=== PATIENT | male | born 1970 | race Caucasian/White ===

== ENCOUNTER 2021-02-14 08:43 | Emergency (ER) | payer OTHER ==
[~2021-02-14] VITALS: Ht 175.3 cm; Wt 88.0 kg
--- NOTE | 2021-02-14 09:00 | NUR ---
The patient is BIBA RA39 In custody Escorted by Officer [place] [id number] Was picked up in jail house for arrest warrant possible ETOH. The patient is responsive to tactile stimuli. In room air, respiration regular and unlabored. The patient is attached to the monitor. Warm blanket provided for comfort. Will continue to monitor the patient.
--- NOTE | 2021-02-14 09:02 | NUR ---
The patient is placed on oxygen 4L/min via nasal cannula due to oxygen saturation level of 85% in room air. Dr Concepción levy.
[2021-02-14 09:08] LABS: BASOPHILS # (AUTO) 0.1 K/uL (0.0-0.2); EOSINOPHILS % (AUTO) 0.4 % (0.0-6.0); HEMATOCRIT 42 % (39-51); HEMOGLOBIN 13.9 g/dL (13.5-17.5); LYMPHOCYTES # (AUTO) 2.1 K/uL (0.8-4.8); LYMPHOCYTES % (AUTO) 27.1 % (20.0-44.0); MEAN CORPUSCULAR HGB CONC 33 g/dl (31.0-36.0); MEAN CORPUSCULAR VOLUME 90 fL (80-96); MONOCYTES # (AUTO) 0.3 K/uL (0.1-1.30); MONOCYTES % (AUTO) 3.4 % (2.0-12.0); NEUTROPHILS # (AUTO) 5.2 K/uL (1.8-8.9); NEUTROPHILS % (AUTO) 68.1 % (43.0-81.0); PLATELET COUNT (AUTO) 271 K/uL (150-450); RED BLOOD CELL COUNT(AUTO) 4.65 MIL/uL (4.5-6.0); WHITE BLOOD COUNT (AUTO) 7.7 K/uL (4.3-11.0)
[2021-02-14] MEDS: IV NS 0.9% 1,000 ML BAG IV ONE (09:10)
--- NOTE | 2021-02-14 09:11 | NUR ---
Accucheck blood sugar level 536. Dr. Beebe made aware.
--- NOTE | 2021-02-14 09:21 | NUR ---
The patient is taken for CT
[2021-02-14 09:24] LABS: ALBUMIN 3.1 g/dL (3.4-5.0); BILIRUBIN,DIRECT 0.3 mg/dL (0.0-0.2); BILIRUBIN,TOTAL 0.4 mg/dL (0.2-1.0); CALCIUM, SERUM 8.1 mg/dL (8.5-10.1); CREATININE 1.2 mg/dL (0.6-1.3); POTASSIUM 3.4 mmol/L (3.5-5.1)
--- NOTE | 2021-02-14 09:28 | NUR ---
The patient is back from CT
[2021-02-14] MEDS ORDERED: LORAZEPAM INJ 2 MG/ML VIAL ONE (09:49)
[2021-02-14 09:52] LABS: BILIRUBIN,URINE Negative (NEGATIVE); COLOR,URINE YELLOW (YELLOW); LEUKOCYTE ESTERASE ,URINE Negative (NEGATIVE); NITRITE, URINE Negative (NEGATIVE); PH,URINE 5.5 (5.0-8.0); PROTEIN,URINE Negative (NEGATIVE); UGLUCOSE >=1000 mg/dL (NEGATIVE)
--- NOTE | 2021-02-14 09:55 | NUR ---
The patient is is placed on simple mask at 5L/min due to patient`s oxygen level being at 84% with oxygen delivering at 4L/min via NC. With simple mask the saturation improved to 90%. Dr Concepción levy.
[2021-02-14] MEDS ORDERED: INSULIN REGULAR, HUMAN 100 UNIT/ML 10 ML VIAL ONE (09:57)
[2021-02-14 09:58] LABS: BACTERIA,URINE Few /HPF (None Seen); RBC,URINE 0-2 /HPF (0-2); SQUAMOUS EPITHELIAL CELL,UR Few /HPF (None Seen); WBC,URINE 0-2 /HPF (0-3)
--- NOTE | 2021-02-14 10:00 | NUR ---
The patient is placed on non-rebreather mask at 10 L/min due to patient`s oxygen not improving with simple mask 5L/min. with non-rebreather mask 10L/min the saturation inporved to 99%. Addendum: 02/14/21 at [address] Concepción levy Addendum: 02/14/21 at 1034 by LSARGSYAN with simple mask 5L/min oxygen saturation at 86%.
[2021-02-14] MEDS: INSULIN REGULAR, HUMAN 100 UNIT/ML 10 ML VIAL IV ONE (10:03)
[2021-02-14] MEDS: LORAZEPAM INJ 2 MG/ML VIAL IV ONE (10:03)
--- NOTE | 2021-02-14 10:17 | NUR ---
the patient is placed on simple mask oxygen delivering 5l/min and saturation is at 97%. Dr Beebe aware. Addendum: 02/14/21 at [address] Beebe aware
--- NOTE | 2021-02-14 10:46 | NUR ---
RT Pt set up on ETCO2 monitoring per MD order. ETCO2 within normal limits, no SOB or respiratory distress noted. Addendum: 02/14/21 at 1052 by DARBY MEJIA RT Amended: Links added.
--- NOTE | 2021-02-14 12:48 | NUR ---
the patient sleeping. responsive to tactile stimuli. in no apparent distress. on oxygen 3l/min via nasal cannula and saturation is at 97%. will continue to monitor the patient.
--- NOTE | 2021-02-14 14:21 | NUR ---
SS consult requested for METH/ETOH abuse. Pt. is is custordy per EMR. The pt. is a 50 year old male BIBPD. SW net with pt. bedside. Pt. is drowsy and not rousable to verbal cues. Pt. given ativan around 10 am today. SW will be avilable as needed.
--- NOTE | 2021-02-14 15:53 | NUR ---
Patient is not yet interviewable. SW spoke to Alvarez BANSAL # [id number] regarding pt. PD statign pt. is in custody and SW place addiction resources in pt.'s chart for D/C. SW will be available as needed. ADDICTION RESOURCES For Drugs and Alcohol [facility] Substance Abuse Helpline([facility])-[facility] Outpatient treatment, residential treatment, recovery support for youth and adults [facility] www.ConteXtreamfaAtox Bio [facility] Teen programs for drug/alcohol education and support [facility] [place]. Program for adults, sliding scale provides support and education [employer] www.i[employer] Campus.[employer] [place]; Outpatient/residential treatment programs; transition to sober living [facility] www.cri-help.org [place]; Outpatient and residential treatment programs; transition to sober living [facility] Jessi Somers; Outpatient education and supportive programs for teens and adults [facility] www.oasiswomensrecwamego health centery.org [facility]; Residential treatment and work program for females only [place] www.[facility].org [facility]: Outpatient/residential treatment program for teens and young adults [facility] www.[facility].org [facility] Detox, inpatient, outpatient for adults and youth [facility], [facility]. [place]; Outpatient programs and referrals to community residential programs. Alcoholics Anonymous -SFV information and meeting and schedules www.aa-intergroup.org Jg-Uxuu-Bgsghjo https://al-anon.org/ [place] support groups for family of alcoholics. Marijuana Anonymous www.madistrict6.org -SFV listing of meetings Narcotics Anonymous www.na.org SOBER LIVING RESOURCES [facility] www.soberhouGaelectricg.net A non-profit agency that provides resources to recovery and sober living homes throughout [place], [place], [place] [facility] So[facility] Living Homes: A Work in Progress, [place] [facility] Recovery [facility]ocates, [place] [facility] [place] Women[facility] So[facility] Living Homes: [facility] [phone] [place], [place] [facility], [place], operated by [facility] Sober Living Homes: [facility] Counseling--Outpatient [facility] [address] [place] [address] (Specializes in in-depth psychotherapy for emotional distress: anxiety, depression, interpersonal conflicts, life transitions, childhood abuse) [facility] [address] [place] [address] (Assist with solving problem marital difficulties, separation & divorce, aging parents, & grief, chronic & terminal illness) [facility] [address] [place] [address] (Deal with loss & grief, anxiety, marital difficulties) Homebound/Mental Health Services [address] [place] [address] (Provide in-home mental services to people who are incapable of leaving their homes) Organization for Needs of the Elderly Senior Service/Resource Center [address] [place] [address] [facility] [address] [place] [address] PSYCHIATRIC OUTPATIENT SERVICES [facility] Partial Hospitalization and Intensive Outpatient Program (Managed Care and [place] Only)[address] [facility] [phone] [facility] Partial Hospitalization and Outpatient [id number] [place], [place] [phone] [facility] Partial Hospitalization and Outpatient [address] [place], [place] [phone] JESSI SOMERS [facility] [id number] [place], [place] [phone] [facility] Jess[address] Somers Partial Hospitalization and Outpatient [id number] [facility] Jessi SomersMEEKER, [phone] Crisis and Hotline Telephone Numbers 24-Hour service unless stated [place] Crisis Hotlines: [facility] Mental Health/Crisis Line........[phone] Suicide Prevention Center (24 Hours).......[phone] Suicide Prevention Crisis Center.......576.870.3615 (24 Hours) Assaults Against Women Hotline.........150.452.6061 (24 Hours -- [facility]) Women and Children Crisis Longterm...........[phone] (24 Hours) Child Abuse Hotline............159.290.7485 [facility] (24 Hours)..........[phone] Alcoholics Anonymous (24 Hours)..........[phone] Cocaine Anonymous (24 Hours)............[phone] Narcotics Anonymous (24 Hours)..........[phone] ISELA SQUIRES [facility] [address] [place] [address] Mental Health Services Jinny [address] [place] [address] Services: Outpatient therapy for children, teens, young adults, adults, older adults, and families; Psychiatric services, medication support Crisis and Hotline Telephone Numbers 24-Hour service unless stated [place] Crisis Hotlines: Jorge Luis Shipman Mental Health/Crisis Line........[phone] Suicide Prevention Center (24 Hours).......516.333.1554 Suicide Prevention Crisis Center.......464.524.2951 (24 Hours) Alcoholics Anonymous (24 Hours)..........923.978.9357 National Crisis Hotlines: Alcohol and Drug Helpline - Provides referrals to local facilities where adolescents and adults can seek help. Brief intervention. [facility] Helpline National [place] for the Mentally Ill 0-326-684-LIGIA National Youth Crisis Hotline [place] [facility]. Provides free information on specific disorders, referral directory to mental health providers, national directory of local mental health associations (M-F, 9-5 EST) National [place] of Mental Health Information Line: Provide sinformation and literature on mental illness by disorder-for professionals and general public.
--- NOTE | 2021-02-14 16:34 | NUR ---
RT Pt is in no distress and ETCO2 readings have been within normal limits. Dr. Arreola does not think ETCO2 monitoring is necessary. No SOB or respiratory distress noted.
--- NOTE | 2021-02-14 17:34 | NUR ---
The patient alert and oriented x4. Denies pain. In room air and denies SOB. Respiration regular and unlabored. oxygen saturation level in room air is at 96%. Patient discharged in stable condition. Written and verbal after care instructions given. Patient verbalizes understanding of instruction. The patient left ER is [employer] officers.
[2021-02-14 17:35] VITALS: BP 98/72
== END 2021-02-14 17:35 ==
LOC: ER 08:52
DX: F10.129 Alcohol abuse with intoxication, unspecified (principal); E11.65 Type 2 diabetes mellitus with hyperglycemia; G93.40 Encephalopathy, unspecified; I10 Essential (primary) hypertension; Y90.8 Blood alcohol level of 240 mg/100 ml or more
CPT/HCPCS: 36415; 70450; 80048; 80076; 80143; 80307; 80320; 81001; 82010; 82962 ×2; 85025; 96361; 96372; 96374; 99285; J1815; J2060; J7030; G0480